=== PATIENT | female | born 1980 | race American Indian/Alaskan Native ===

== ENCOUNTER 2017-06-12 23:01 | Emergency (ER) | payer SELFPAY ==
[2017-06-12 23:43] VITALS: BP 147/83
[2017-06-13] MEDS ORDERED: Cyclobenzaprine 10 MG Tab PO ONE (00:11)
[2017-06-13] MEDS ORDERED: traMADol 50 MG Tab PO ONE (00:12)
--- NOTE | 2017-06-13 00:24 | EDM.PDOC ---
[id number] 4d HEAD AND NECK PAIN Time Seen by Provider: 06/12/17 23:45 Source of Information: Reports: Patient History Limitations: Reports: No Limitations - History of Present Illness INITIAL COMMENTS - FREE TEXT/NARRATIVE: c/o pain to left side of neck and back of head since awakening today. Has had previous similar episodes in past. Denies injury or differing of activity yesterday. No fever, Has not tried anything for pain. Onset: Today Location: Reports: Neck Quality: Reports: Stabbing (with movment) Worsens with: Reports: Movement Posterior Head Pain Score (Numeric/FACES): 8 - Related Data Allergies Allergy/AdvReac Type Severity Reaction Status Date / Time No Known Allergies Allergy Verified 06/12/17 23:29 Home Meds: Home Meds Gabapentin [Neurontin] 1 tab PO BID 06/12/17 [History] Gabapentin [Neurontin] 3 tab PO BEDTIME 06/12/17 [History] Hydrochlorothiazide 1 tab PO DAILY 06/12/17 [History] Ibuprofen 1 tab PO Q6H PRN 06/12/17 [History] Past Medical History - Past Health History Medical/Surgical History: Denies Medical/Surgical History Cardiovascular History: Reports: Hypertension Other Cardiovascular History: with Respiratory History: Reports: None Genitourinary History: Reports: None [employer]OR History: Reports: Other OB/BYN History: , tubal ligation Musculoskeletal History: Reports: Other (See Below) Other Musculoskeletal History: torticullis Neurological History: Reports: Migraines Psychiatric History: Reports: None Endocrine/Metabolic History: Reports: None Hematologic History: Reports: None Immunologic History: Reports: None Oncologic (Cancer) History: Reports: None Dermatologic History: Reports: None - Infectious Disease History Infectious Disease History: Reports: None - Past Surgical History GI Surgical History: Reports: Cholecystectomy Female Surgical History: Reports: Section, Tubal Ligation Social & Family History - Family History Family Medical History: Noncontributory Cardiac: Reports: Hypertension - Tobacco Use Smoking Status *Q: Current Every Day Smoker Years of Tobacco use: 19 Packs/Tins Daily: 0.1 Used Tobacco, but Quit: No Second Hand Smoke Exposure: Yes - Caffeine Use Caffeine Use: Reports: Soda - Alcohol Use Days Per Week of Alcohol Use: 2 Number of Drinks Per Day: 1 Total Drinks Per Week: 2 - Recreational Drug Use Recreational Drug Use: No Drug Use in Last 12 Months: Yes Recreational Drug Type: Reports: Amphetamines (Speed), Marijuana/Hashish, Methamphetamine Recreational Drug Use Frequency: Binges - Living Situation & Occupation Living situation: Reports: with Significant Other Occupation: Employed ED ROS GENERAL - Review of Systems Review Of Systems: See Below Constitutional: Reports: No Symptoms HEENT: Reports: No Symptoms Respiratory: Reports: No Symptoms Cardiovascular: Reports: No Symptoms GI/Abdominal: Reports: No Symptoms Musculoskeletal: Reports: Neck Pain Skin: Reports: No Symptoms Neurological: Reports: Headache (occipital) - Physical Exam Exam: See Below Exam Limited By: No Limitations General Appearance: Alert, Mild Distress Eye Exam: Bilateral Eye: EOMI, Normal Fundi, PERRL Ears: Normal External Exam Nose: Normal Inspection Throat/Mouth: Normal Inspection Head Exam: Atraumatic, Normocephalic Neck: Full Range of Motion, Tender Lateral, Other (increased pain with turning toward right. ). No: Lymphadenopathy (L), Lymphadenopathy (R) Respiratory/Chest: No Respiratory Distress, Lungs Clear, Normal Breath Sounds Cardiovascular: Normal Peripheral Pulses, Regular Rate, Rhythm Neuro Exam (Abbreviated): Alert, Oriented, Normal Cognition, Normal Reflexes, No Motor/Sensory Deficits Back Exam: Normal Inspection Extremities: Normal Inspection Psychiatric: Normal Affect Skin Exam: Warm, Dry, Intact, Normal Color Course - Vital Signs Last Recorded V/S: Last Vital Signs Temp 97.4 F 06/12/17 23:37 Pulse 71 06/12/17 23:37 Resp 16 06/12/17 23:37 BP 147/83 H 06/12/17 23:37 Pulse Ox 100 06/12/17 23:37 - Orders/Labs/Meds Meds: Medications Discontinued Medications Generic Name Dose Route Start Last Admin Trade Name Freq PRN Reason Stop Dose Admin Cyclobenzaprine HCl 10 mg 06/13/17 00:11 06/13/17 00:16 Flexeril PO 06/13/17 00:12 10 mg ONETIME ONE Administration Tramadol HCl 50 mg 06/13/17 00:12 06/13/17 00:16 Ultram PO 06/13/17 00:13 50 mg ONETIME ONE Administration Departure - Departure Time of Disposition: 00:22 Disposition: Home, Self-Care 01 Condition: Good Clinical Impression: Neck muscle spasm - Discharge Information Instructions: Acute Torticollis Forms: ED Department Discharge Additional Instructions: alternate tylenol and ibuprofen for pain heat to neck follow up in clinic for chronic pain management
== END 2017-06-13 00:29 | disposition home or self-care (01) ==
LOC: DL.ED 23:01
DX: M62.838 Other muscle spasm (principal); I10 Essential (primary) hypertension; F17.210 Nicotine dependence, cigarettes, uncomplicated; Z98.51 Tubal ligation status; Z90.49 Acquired absence of other specified parts of digestive tract; Z79.899 Other long term (current) drug therapy
CPT/HCPCS: 99283; 99284; A9270

== ENCOUNTER 2017-07-01 19:02 | Emergency (ER) | payer MEDICAID ==
[2017-07-01 21:18] LABS: CHLORIDE,CL 101 mmol/L (101-111); SODIUM,NA 139 mmol/L (135-145)
--- NOTE | 2017-07-01 21:24 | EDM.PDOC ---
[id number]: CHLOE KENDALL, [id number] Time Seen by Provider: 07/01/17 19:30 Source of Information: Reports: Patient History Limitations: Reports: No Limitations - History of Present Illness INITIAL COMMENTS - FREE TEXT/NARRATIVE: lower abdominal pain starting yesterday, worse this shyanne, no vomiting, no diarrhea, last bm few hours ago, pain sharp bilateral, cramping, sharp. Admits meth use yesterday prior to pain onset, has not taken anything for pain. Location: Reports: Abdomen Bilateral Upper Abdomen Pain Score (Numeric/FACES): 7 - Related Data Allergies Allergy/AdvReac Type Severity Reaction Status Date / Time No Known Allergies Allergy Verified 07/01/17 19:11 Home Meds: Home Meds Gabapentin [Neurontin] 1 tab PO BID 06/12/17 [History] Gabapentin [Neurontin] 3 tab PO BEDTIME 06/12/17 [History] Ibuprofen 1 tab PO Q6H PRN 06/12/17 [History] Past Medical History - Past Health History Medical/Surgical History: Denies Medical/Surgical History Cardiovascular History: Reports: Hypertension Other Cardiovascular History: with Respiratory History: Reports: None Genitourinary History: Reports: None [employer] WORKER History: Reports: Other OB/BYN History: , tubal ligation Musculoskeletal History: Reports: Other (See Below) Other Musculoskeletal History: torticullis Neurological History: Reports: Migraines Psychiatric History: Reports: None Endocrine/Metabolic History: Reports: None Hematologic History: Reports: None Immunologic History: Reports: None Oncologic (Cancer) History: Reports: None Dermatologic History: Reports: None - Infectious Disease History Infectious Disease History: Reports: None - Past Surgical History GI Surgical History: Reports: Cholecystectomy Female Surgical History: Reports: Section, Tubal Ligation Social & Family History - Family History Family Medical History: Noncontributory Cardiac: Reports: Hypertension - Tobacco Use Smoking Status *Q: Current Every Day Smoker Years of Tobacco use: 19 Packs/Tins Daily: 0.3 Used Tobacco, but Quit: No Second Hand Smoke Exposure: Yes - Caffeine Use Caffeine Use: Reports: Soda - Alcohol Use Days Per Week of Alcohol Use: 2 Number of Drinks Per Day: 1 Total Drinks Per Week: 2 - Recreational Drug Use Recreational Drug Use: No Drug Use in Last 12 Months: Yes Recreational Drug Type: Reports: Amphetamines (Speed), Marijuana/Hashish, Methamphetamine Recreational Drug Use Frequency: Binges - Living Situation & Occupation Living situation: Reports: with Significant Other Occupation: Employed ED ROS GENERAL - Review of Systems Review Of Systems: ROS reveals no pertinent complaints other than HPI. ED EXAM, GI/ABD - Physical Exam Exam: See Below Exam Limited By: No Limitations General Appearance: Alert, Mild Distress Eyes: Bilateral: Normal Appearance Ears: Normal External Exam Nose: Normal Inspection Throat/Mouth: Normal Inspection Head: Atraumatic, Normocephalic Neck: Normal Inspection, Full Range of Motion Respiratory/Chest: No Respiratory Distress, Lungs Clear, Normal Breath Sounds Cardiovascular: Normal Peripheral Pulses, Regular Rate, Rhythm GI/Abdominal Exam: Normal Bowel Sounds, Soft, Non-Tender (with palpation) Back Exam: Normal Inspection Extremities: Normal Inspection, Normal Range of Motion Neurological: Alert, Oriented, Normal Cognition Psychiatric: Normal Affect, Normal Mood Skin Exam: Warm, Dry, Intact, Normal Color Course - Vital Signs Last Recorded V/S: Last Vital Signs Temp 97.7 F 07/01/17 20:53 Pulse 90 07/01/17 22:04 Resp 18 07/01/17 22:04 BP 142/68 H 07/01/17 22:04 Pulse Ox 100 07/01/17 22:04 - Orders/Labs/Meds Labs: Laboratory Tests 07/01/17 07/01/17 07/01/17 Range/Units 19:15 19:15 20:45 WBC 13.8 H (5.0-10.0) 10^3/uL RBC 4.95 (4.2-5.4) 10^6/uL Hgb 13.0 (12.0-16.0) g/dL Hct 40.4 (37.0-47.0) % MCV 81.6 (80-100) fL MCH 26.3 L (27.0-34.0) pg MCHC 32.2 L (33.0-35.0) g/dL Plt Count 389 (150-450) 10^3/uL Neut % (Auto) 76.3 H (42.2-75.2) % Lymph % (Auto) 16.3 L (20.5-50.1) % Sutter % (Auto) 6.6 (2-8) % Eos % (Auto) 0.7 L (1.0-3.0) % Baso % (Auto) 0.1 (0.0-1.0) % Sodium (135-145) mmol/L Potassium (3.6-5.0) mmol/L Chloride (101-111) mmol/L Carbon Dioxide (21.0-31.0) mmol/L Anion Gap BUN (7-18) mg/dL Creatinine (0.6-1.3) mg/dL Est Cr Clr Drug Dosing Estimated GFR (MDRD) BUN/Creatinine Ratio Glucose (74-105) mg/dL Calcium (8.4-10.2) mg/dl Total Bilirubin (0.2-1.0) mg/dL AST (10-42) IU/L ALT (10-60) IU/L Alkaline Phosphatase (42-121) IU/L Total Protein (6.7-8.2) g/dl Albumin (3.2-5.5) g/dl Globulin Albumin/Globulin Ratio Urine Color Yellow (YELLOW) Urine Appearance Slightly cloudy (CLEAR) Urine pH 6.0 (5.0-9.0) Ur Specific [place] 1.025 (1.005-1.030) Urine Protein 30 H (NEGATIVE) Urine Glucose (UA) Negative (NEGATIVE) Urine Ketones 15 H (NEGATIVE) Urine Occult Blood Negative (NEGATIVE) Urine Nitrite Negative (NEGATIVE) Urine Bilirubin Small H (NEGATIVE) Urine Urobilinogen 0.2 (0.2-1.0) mg/dL Ur Leukocyte Esterase Negative (NEGATIVE) Urine RBC 0-5 /HPF Urine WBC 0-5 (0-5/HPF) /HPF Ur Epithelial Cells Few /HPF Calcium Oxalate Crystal Moderate H /HPF Urine Bacteria Moderate H (0-FEW/HPF) /HPF Urine Mucus Moderate H /LPF Urine Opiates Screen Negative (NEGATIVE) Ur Oxycodone Screen Negative (NEGATIVE) Urine Methadone Screen Negative (NEGATIVE) Ur Barbiturates Screen Negative (NEGATIVE) U Tricyclic Antidepress Negative (NEGATIVE) Ur Phencyclidine Scrn Negative (NEGATIVE) Ur Amphetamine Screen Positive H (NEGATIVE) U Methamphetamines Scrn Positive H (NEGATIVE) Urine MDMA Screen Negative (NEGATIVE) U Benzodiazepines Scrn Negative (NEGATIVE) Urine Cocaine Screen Negative (NEGATIVE) U Marijuana (THC) Screen Negative (NEGATIVE) 07/01/17 Range/Units 20:45 WBC (5.0-10.0) 10^3/uL RBC (4.2-5.4) 10^6/uL Hgb (12.0-16.0) g/dL Hct (37.0-47.0) % MCV (80-100) fL MCH (27.0-34.0) pg MCHC (33.0-35.0) g/dL Plt Count (150-450) 10^3/uL Neut % (Auto) (42.2-75.2) % Lymph % (Auto) (20.5-50.1) % Sutter % (Auto) (2-8) % Eos % (Auto) (1.0-3.0) % Baso % (Auto) (0.0-1.0) % Sodium 139 (135-145) mmol/L Potassium 4.0 (3.6-5.0) mmol/L Chloride 101 (101-111) mmol/L Carbon Dioxide 27.0 (21.0-31.0) mmol/L Anion Gap 15.0 BUN 19 H (7-18) mg/dL Creatinine 1.1 (0.6-1.3) mg/dL Est Cr Clr Drug Dosing TNP Estimated GFR (MDRD) 56 BUN/Creatinine Ratio 17.27 Glucose 112 H (74-105) mg/dL Calcium 9.4 (8.4-10.2) mg/dl Total Bilirubin 0.6 (0.2-1.0) mg/dL AST 21 (10-42) IU/L ALT 36 (10-60) IU/L Alkaline Phosphatase 99 (42-121) IU/L Total Protein 8.3 H (6.7-8.2) g/dl Albumin 3.9 (3.2-5.5) g/dl Globulin 4.4 Albumin/Globulin Ratio 0.89 Urine Color (YELLOW) Urine Appearance (CLEAR) Urine pH (5.0-9.0) Ur Specific [place] (1.005-1.030) Urine Protein (NEGATIVE) Urine Glucose (UA) (NEGATIVE) Urine Ketones (NEGATIVE) Urine Occult Blood (NEGATIVE) Urine Nitrite (NEGATIVE) Urine Bilirubin (NEGATIVE) Urine Urobilinogen (0.2-1.0) mg/dL Ur Leukocyte Esterase (NEGATIVE) Urine RBC /HPF Urine WBC (0-5/HPF) /HPF Ur Epithelial Cells /HPF Calcium Oxalate Crystal /HPF Urine Bacteria (0-FEW/HPF) /HPF Urine Mucus /LPF Urine Opiates Screen (NEGATIVE) Ur Oxycodone Screen (NEGATIVE) Urine Methadone Screen (NEGATIVE) Ur Barbiturates Screen (NEGATIVE) U Tricyclic Antidepress (NEGATIVE) Ur Phencyclidine Scrn (NEGATIVE) Ur Amphetamine Screen (NEGATIVE) U Methamphetamines Scrn (NEGATIVE) Urine MDMA Screen (NEGATIVE) U Benzodiazepines Scrn (NEGATIVE) Urine Cocaine Screen (NEGATIVE) U Marijuana (THC) Screen (NEGATIVE) Departure - Departure Time of Disposition: 22:05 Disposition: Home, Self-Care 01 Clinical Impression: Methamphetamine abuse Abdominal pain Qualifiers: Abdominal location: lower abdomen, unspecified Qualified Code(s): R10.30 - Lower abdominal pain, unspecified - Discharge Information Instructions: Abdominal Pain, Adult, [id number] Referrals: PCP,None [Primary Care Provider] - Forms: ED Department Discharge Additional Instructions: light low fat, low spice diet follow up if fever or localization of pain tylenol 650mg every 4 hours as needed
[2017-07-01 22:09] VITALS: BP 142/68
== END 2017-07-01 22:05 | disposition home or self-care (01) ==
LOC: DL.ED 19:02
DX: R10.30 Lower abdominal pain, unspecified (principal); F15.10 Other stimulant abuse, uncomplicated; I10 Essential (primary) hypertension; G43.909 Migraine, unspecified, not intractable, without status migrainosus; F17.210 Nicotine dependence, cigarettes, uncomplicated; Z90.49 Acquired absence of other specified parts of digestive tract; Z98.51 Tubal ligation status
CPT/HCPCS: 36415; 74000; 80053; 80305; 81001; 85025; 99282; 99284

== ENCOUNTER 2018-07-13 08:34 | Inpatient (IN) | payer MEDICAID ==
[2018-07-13] MEDS ORDERED: Naloxone 2 MG/2 ML Syringe ONE (08:39)
[2018-07-13] MEDS ORDERED: Sodium Chloride 0.9% 10 ML Syringe FLUSH PRN (08:40)
[2018-07-13] MEDS ORDERED: Sodium Chloride 0.9% 1,000 ML IV ONE (08:41)
[2018-07-13] MEDS: Sodium Chloride 0.9% 10 ML Syringe FLUSH PRN ×3 (08:51→18:13)
[2018-07-13] MEDS ORDERED: Flumazenil 0.1 MG/ML 5 ML MDV IVPUSH ONE (08:52)
[2018-07-13 09:11] LABS: ANION GAP 15.2; CHLORIDE,CL 107 mmol/L (101-111); SODIUM,NA 144 mmol/L (135-145)
[2018-07-13 09:19] LABS: ACETAMINOPHEN < 10
[2018-07-13] MEDS ORDERED: Diphtheria,Pertussis(Acell),Tetanus Vaccine 0.5 ML SDV IM ONE (09:39)
[2018-07-13] MEDS ORDERED: Bacitracin Oint 1 GM U/D Packet TOP ONE (09:39)
[2018-07-13] MEDS ORDERED: MVI, Adult with Vitamin K 10 ML, Thiamine 100 MG, Folic Acid 1 MG in Lactated Ringers 1... IV ONE ×4 (10:35)
--- NOTE | 2018-07-13 10:45 | EDM.PDOCBH ---
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 She was minimally responsive, so they called 911. EMS reports that they found what was believed to be 2 needles from illicit drug use on her possession. Patient arrived to ER responsive to verbal and tactile stimuli, but drowsy and uncooperative. She smelled of alcohol intoxicants. EMS states that a witnessed reported that the patient was pulled from a parked car and drug a short distance to the driveway where she was found. No other details are available. Medical records indicate that the patient is a known methamphetamine abuser. Patient is unable to provide any history. Onset: Today Duration: Constant Location: Reports: Generalized Severity: Severe Improves with: Reports: None Worsens with: Reports: None Associated Symptoms: Reports: No Other Symptoms - Related Data Allergies Allergy/AdvReac Type Severity Reaction Status Date / Time No Known Allergies Allergy Verified 07/01/17 19:11 Home Meds: Home Meds Gabapentin [Neurontin] 1 tab PO BID 06/12/17 [History] Gabapentin [Neurontin] 3 tab PO BEDTIME 06/12/17 [History] Ibuprofen 1 tab PO Q6H PRN 06/12/17 [History] Past Medical History - Past Health History Medical/Surgical History: Denies Medical/Surgical History Cardiovascular History: Reports: Hypertension Other Cardiovascular History: with Respiratory History: Reports: None Genitourinary History: Reports: None COTTON PULLER History: Reports: Other COTTON PULLER History: , tubal ligation Musculoskeletal History: Reports: Other (See Below) Other Musculoskeletal History: torticullis Neurological History: Reports: Migraines Psychiatric History: Reports: None Endocrine/Metabolic History: Reports: None Hematologic History: Reports: None Immunologic History: Reports: None Oncologic (Cancer) History: Reports: None Dermatologic History: Reports: None - Infectious Disease History Infectious Disease History: Reports: None - Past Surgical History GI Surgical History: Reports: Cholecystectomy Female Surgical History: Reports: Section, Tubal Ligation Social & Family History - Family History Family Medical History: Noncontributory Cardiac: Reports: Hypertension - Caffeine Use Caffeine Use: Reports: Soda - Alcohol Use Alcohol Use History: Yes Alcohol Use Frequency: Binges - Recreational Drug Use Recreational Drug Use: Yes Drug Use in Last 12 Months: Yes Recreational Drug Type: Reports: Methamphetamine Recreational Drug Route: Reports: Intravenous - Living Situation & Occupation Living situation: Reports: with Significant Other Occupation: Employed ED ROS GENERAL - Review of Systems Review Of Systems: Unable To Obtain ED EXAM, BEHAVIORAL HEALTH - Physical Exam Exam: See Below Exam Limited By: Uncooperative General Appearance: No Apparent Distress, Obtunded Eye Exam: Bilateral Eye: EOMI, Normal Inspection, PERRL Ears: Normal External Exam Nose: Normal Inspection, Normal Mucosa, No Blood Throat/Mouth: Normal Inspection, Normal Lips, Normal Teeth, Normal Gums, Normal Oropharynx, Normal Voice, No Airway Compromise Head: Atraumatic, Normocephalic Neck: Normal Inspection, Full Range of Motion Respiratory/Chest: No Respiratory Distress, Lungs Clear, Normal Breath Sounds, No Accessory Muscle Use, Chest Non-Tender Cardiovascular: Regular Rate, Rhythm GI/Abdominal: Normal Bowel Sounds, Soft, Non-Tender, No Distention (Female) Exam: Normal External Exam Rectal (Female) Exam: Deferred Back Exam: Other (there is superficial abrasion of the sacral area consistent with being drug on the ground) Extremities: Normal Inspection, Normal Range of Motion, No Pedal Edema, Normal Capillary Refill. No: Joint Swelling Neurological: Other (heavily intoxicate and uncooperativewith exam, butwith purposeful movement of head, neck and all extremities. No obvious motor or sensory deficits.) Psychiatric: Alert Skin Exam: Other (multiple bruises and abrasions to neck, B/L upper and lower extremities) EKG INTERPRETATION EKG Date: 07/13/18 Time: 09:42 Rhythm: Other (sinus rhythm) Rate (Beats/Min): 79 Garfield: LAD-Left Garfield Deviation P-Wave: Present QRS: Normal ST-T: Normal QT: Normal Comparison: NA - No Prior EKG COURSE, BEHAVIORAL HEALTH COMP - Course Vital Signs: Last Vital Signs Temp 36.3 C 07/13/18 08:45 Pulse 82 07/13/18 08:45 Resp 18 07/13/18 08:45 BP 133/86 07/13/18 08:45 Pulse Ox 95 07/13/18 08:45 Orders, Labs, Meds: Active Orders 24 hr Category Date Time Status Blood Glucose Check, Bedside [RC] ONETIME Care 07/13/18 08:39 Active EKG 12 Lead [EKG Documentation Completion] [RC] STAT Care 07/13/18 08:38 Active Peripheral IV Care [RC] . DIRECTED Care 07/13/18 08:40 Active Peripheral IV Care [RC] . DIRECTED Care 07/13/18 08:40 Active Vaccines to be Administered [RC] PER UNIT ROUTINE Care 07/13/18 09:39 Active Head wo Cont [CT] Stat Exams 07/13/18 08:53 Ordered DRUG SCREEN URINE BIORAD [URCHEM] Stat Lab 07/13/18 08:50 Ordered HCG QUALITATIVE,URINE [URCHEM] Stat Lab 07/13/18 08:50 Ordered MVI, Adult with Vitamin K [Infuvite Adult] 10 ml Med 07/13/18 10:35 Active Thiamine [Vitamin B-1] 100 mg Folic Acid 1 mg Lactated Ringers [Ringers, Lactated] 1,000 ml IV .BOLUS Sodium Chloride 0.9% [Saline Flush] Med 07/13/18 08:39 Active 10 ml FLUSH ASDIRECTED PRN Sodium Chloride 0.9% [Saline Flush] Med 07/13/18 08:40 Active 10 ml FLUSH ASDIRECTED PRN Peripheral IV Insertion Adult [OM.PC] Stat Oth 07/13/18 08:38 Ordered Peripheral IV Insertion Adult [OM.PC] Stat Oth 07/13/18 08:40 Ordered Medication Orders Multivitamins/Minerals 10 ml/Thiamine HCl 100 mg/ Folic Acid 1 mg/ Lactated Ringer's 1,011.2 mls @ 999 mls/hr IV .BOLUS ONE Stop: 07/13/18 11:35 Sodium Chloride (Saline Flush) 10 ml FLUSH ASDIRECTED PRN PRN Reason: Keep Vein Open Last Admin: 07/13/18 08:51 Dose: 10 ml Sodium Chloride (Saline Flush) 10 ml FLUSH ASDIRECTED PRN PRN Reason: Keep Vein Open Last Admin: 07/13/18 09:12 Dose: 10 ml Laboratory Tests 07/13/18 07/13/18 07/13/18 Range/Units 08:41 08:41 08:41 WBC 6.0 (5.0-10.0) 10^3/uL RBC 6.16 H (4.2-5.4) 10^6/uL Hgb 14.7 D (12.0-16.0) g/dL Hct 46.6 (37.0-47.0) % MCV 75.6 L D (80-100) fL MCH 23.9 L (27.0-34.0) pg MCHC 31.5 L (33.0-35.0) g/dL Plt Count 389 (150-450) 10^3/uL Neut % (Auto) 59.4 (42.2-75.2) % Lymph % (Auto) 35.4 (20.5-50.1) % [place] % (Auto) 4.4 (2-8) % Eos % (Auto) 0.3 L (1.0-3.0) % Baso % (Auto) 0.5 (0.0-1.0) % PT 8.8 L (9.0-12.0) SEC INR 0.9 (0.9-1.2) APTT 24.2 (22.0-34.0) SEC Sodium 144 (135-145) mmol/L Potassium 3.2 L (3.6-5.0) mmol/L Chloride 107 (101-111) mmol/L Carbon Dioxide 25.0 (21.0-31.0) mmol/L Anion Gap 15.2 BUN 9 (7-18) mg/dL Creatinine 0.8 (0.6-1.3) mg/dL Est Cr Clr Drug Dosing TNP Estimated GFR (MDRD) > 60 BUN/Creatinine Ratio 11.25 Glucose 159 H (74-105) mg/dL POC Glucose (70-105) mg/dl Calcium 8.6 (8.4-10.2) mg/dl Magnesium 2.1 (1.8-2.5) mg/dL Total Bilirubin 0.4 (0.2-1.0) mg/dL AST 36 (10-42) IU/L ALT 50 (10-60) IU/L Alkaline Phosphatase 107 (42-121) IU/L Troponin I < 0.02 (0.00-0.02) ng/ml Total Protein 8.9 H (6.7-8.2) g/dl Albumin 4.1 (3.2-5.5) g/dl Globulin 4.8 Albumin/Globulin Ratio 0.85 Urine Color (YELLOW) Urine Appearance (CLEAR) Urine pH (5.0-9.0) Ur Specific [place] (1.005-1.030) Urine Protein (NEGATIVE) Urine Glucose (UA) (NEGATIVE) Urine Ketones (NEGATIVE) Urine Occult Blood (NEGATIVE) Urine Nitrite (NEGATIVE) Urine Bilirubin (NEGATIVE) Urine Urobilinogen (0.2-1.0) mg/dL Ur Leukocyte Esterase (NEGATIVE) Urine RBC /HPF Urine WBC (0-5/HPF) /HPF Ur Epithelial Cells /HPF Urine Bacteria (0-FEW/HPF) /HPF Urine Mucus /LPF Urine HCG, Qual Salicylates < 4.0 Urine Opiates Screen (NEGATIVE) Ur Oxycodone Screen (NEGATIVE) Urine Methadone Screen (NEGATIVE) Acetaminophen < 10 Ur Barbiturates Screen (NEGATIVE) U Tricyclic Antidepress (NEGATIVE) Ur Phencyclidine Scrn (NEGATIVE) Ur Amphetamine Screen (NEGATIVE) U Methamphetamines Scrn (NEGATIVE) Urine MDMA Screen (NEGATIVE) U Benzodiazepines Scrn (NEGATIVE) Urine Cocaine Screen (NEGATIVE) U Marijuana (THC) Screen (NEGATIVE) Ethyl Alcohol 424 mg/dL 07/13/18 07/13/18 07/13/18 Range/Units 08:50 08:50 08:50 WBC (5.0-10.0) 10^3/uL RBC (4.2-5.4) 10^6/uL Hgb (12.0-16.0) g/dL Hct (37.0-47.0) % MCV (80-100) fL MCH (27.0-34.0) pg MCHC (33.0-35.0) g/dL Plt Count (150-450) 10^3/uL Neut % (Auto) (42.2-75.2) % Lymph % (Auto) (20.5-50.1) % [place] % (Auto) (2-8) % Eos % (Auto) (1.0-3.0) % Baso % (Auto) (0.0-1.0) % PT (9.0-12.0) SEC INR (0.9-1.2) APTT (22.0-34.0) SEC Sodium (135-145) mmol/L Potassium (3.6-5.0) mmol/L Chloride (101-111) mmol/L Carbon Dioxide (21.0-31.0) mmol/L Anion Gap BUN (7-18) mg/dL Creatinine (0.6-1.3) mg/dL Est Cr Clr Drug Dosing Estimated GFR (MDRD) BUN/Creatinine Ratio Glucose (74-105) mg/dL POC Glucose (70-105) mg/dl Calcium (8.4-10.2) mg/dl Magnesium (1.8-2.5) mg/dL Total Bilirubin (0.2-1.0) mg/dL AST (10-42) IU/L ALT (10-60) IU/L Alkaline Phosphatase (42-121) IU/L Troponin I (0.00-0.02) ng/ml Total Protein (6.7-8.2) g/dl Albumin (3.2-5.5) g/dl Globulin Albumin/Globulin Ratio Urine Color Yellow (YELLOW) Urine Appearance Clear (CLEAR) Urine pH 6.0 (5.0-9.0) Ur Specific [place] <= 1.005 (1.005-1.030) Urine Protein Negative (NEGATIVE) Urine Glucose (UA) Negative (NEGATIVE) Urine Ketones Negative (NEGATIVE) Urine Occult Blood Small H (NEGATIVE) Urine Nitrite Negative (NEGATIVE) Urine Bilirubin Negative (NEGATIVE) Urine Urobilinogen 0.2 (0.2-1.0) mg/dL Ur Leukocyte Esterase Small H (NEGATIVE) Urine RBC 0-5 /HPF Urine WBC 5-10 H (0-5/HPF) /HPF Ur Epithelial Cells Rare /HPF Urine Bacteria Not seen (0-FEW/HPF) /HPF Urine Mucus Not seen /LPF Urine HCG, Qual Negative Salicylates Urine Opiates Screen Negative (NEGATIVE) Ur Oxycodone Screen Negative (NEGATIVE) Urine Methadone Screen Negative (NEGATIVE) Acetaminophen Ur Barbiturates Screen Negative (NEGATIVE) U Tricyclic Antidepress Negative (NEGATIVE) Ur Phencyclidine Scrn Negative (NEGATIVE) Ur Amphetamine Screen Negative (NEGATIVE) U Methamphetamines Scrn Positive H (NEGATIVE) Urine MDMA Screen Negative (NEGATIVE) U Benzodiazepines Scrn Negative (NEGATIVE) Urine Cocaine Screen Negative (NEGATIVE) U Marijuana (THC) Screen Negative (NEGATIVE) Ethyl Alcohol mg/dL 07/13/18 Range/Units 09:43 WBC (5.0-10.0) 10^3/uL RBC (4.2-5.4) 10^6/uL Hgb (12.0-16.0) g/dL Hct (37.0-47.0) % MCV (80-100) fL MCH (27.0-34.0) pg MCHC (33.0-35.0) g/dL Plt Count (150-450) 10^3/uL Neut % (Auto) (42.2-75.2) % Lymph % (Auto) (20.5-50.1) % [place] % (Auto) (2-8) % Eos % (Auto) (1.0-3.0) % Baso % (Auto) (0.0-1.0) % PT (9.0-12.0) SEC INR (0.9-1.2) APTT (22.0-34.0) SEC Sodium (135-145) mmol/L Potassium (3.6-5.0) mmol/L Chloride (101-111) mmol/L Carbon Dioxide (21.0-31.0) mmol/L Anion Gap BUN (7-18) mg/dL Creatinine (0.6-1.3) mg/dL Est Cr Clr Drug Dosing Estimated GFR (MDRD) BUN/Creatinine Ratio Glucose (74-105) mg/dL POC Glucose 132 H (70-105) mg/dl Calcium (8.4-10.2) mg/dl Magnesium (1.8-2.5) mg/dL Total Bilirubin (0.2-1.0) mg/dL AST (10-42) IU/L ALT (10-60) IU/L Alkaline Phosphatase (42-121) IU/L Troponin I (0.00-0.02) ng/ml Total Protein (6.7-8.2) g/dl Albumin (3.2-5.5) g/dl Globulin Albumin/Globulin Ratio Urine Color (YELLOW) Urine Appearance (CLEAR) Urine pH (5.0-9.0) Ur Specific [place] (1.005-1.030) Urine Protein (NEGATIVE) Urine Glucose (UA) (NEGATIVE) Urine Ketones (NEGATIVE) Urine Occult Blood (NEGATIVE) Urine Nitrite (NEGATIVE) Urine Bilirubin (NEGATIVE) Urine Urobilinogen (0.2-1.0) mg/dL Ur Leukocyte Esterase (NEGATIVE) Urine RBC /HPF Urine WBC (0-5/HPF) /HPF Ur Epithelial Cells /HPF Urine Bacteria (0-FEW/HPF) /HPF Urine Mucus /LPF Urine HCG, Qual Salicylates Urine Opiates Screen (NEGATIVE) Ur Oxycodone Screen (NEGATIVE) Urine Methadone Screen (NEGATIVE) Acetaminophen Ur Barbiturates Screen (NEGATIVE) U Tricyclic Antidepress (NEGATIVE) Ur Phencyclidine Scrn (NEGATIVE) Ur Amphetamine Screen (NEGATIVE) U Methamphetamines Scrn (NEGATIVE) Urine MDMA Screen (NEGATIVE) U Benzodiazepines Scrn (NEGATIVE) Urine Cocaine Screen (NEGATIVE) U Marijuana (THC) Screen (NEGATIVE) Ethyl Alcohol mg/dL Medications Generic Name Dose Route Start Last Admin Trade Name Freq PRN Reason Stop Dose Admin Multivitamins/Minerals 10 ml/ 1,011.2 mls @ 999 mls/hr 07/13/18 10:35 Thiamine HCl 100 mg/ Folic IV 07/13/18 11:35 Acid 1 mg/ Lactated Ringer's .BOLUS ONE Sodium Chloride 10 ml 07/13/18 08:39 07/13/18 08:51 Saline Flush FLUSH 10 ml ASDIRECTED PRN Administration Keep Vein Open Sodium Chloride 10 ml 07/13/18 08:40 07/13/18 09:12 Saline Flush FLUSH 10 ml ASDIRECTED PRN Administration Keep Vein Open Discontinued Medications Generic Name Dose Route Start Last Admin Trade Name Freq PRN Reason Stop Dose Admin Bacitracin 1 dose 07/13/18 09:39 07/13/18 09:57 Bacitracin Oint 1 Gm TOP 07/13/18 09:40 1 dose ONETIME ONE Administration Diphtheria/Tetanus/Acell Pertussis 0.5 ml 07/13/18 09:39 07/13/18 09:56 Adacel IM 07/13/18 09:40 0.5 ml .ONCE ONE Administration Flumazenil 0.2 mg 07/13/18 08:52 07/13/18 09:10 Romazicon IVPUSH 07/13/18 08:53 0.2 mg ONETIME ONE Administration Sodium Chloride 1,000 mls @ 999 mls/hr 07/13/18 08:41 07/13/18 08:52 Normal Saline IV 07/13/18 09:41 999 mls/hr .BOLUS ONE Administration Naloxone HCl Confirm 07/13/18 08:39 07/13/18 08:51 Narcan Administered 07/13/18 08:40 2 mg Dose Administration 2 mg .ROUTE .STK-MED ONE Re-Assessment/Re-Exam: CT Head: no acute IC process, see Rad. report. Departure - Departure Time of Disposition: 10:38 ((Admit to Dr. Gutierres)) Disposition: Admitted As Inpatient 66 Condition: Serious Clinical Impression: Alcohol abuse, IV drug user, Methamphetamine abuse, Abrasions of multiple sites , Contusion, multiple sites Acute alcohol intoxication Qualifiers: Complication of substance-induced condition: with unspecified complication Qualified Code(s): F10.929 - Alcohol use, unspecified with intoxication, unspecified - Discharge Information Forms: ED Department Discharge - My Orders Last 24 Hours: My Active Orders 07/13/18 08:38 EKG 12 Lead [EKG Documentation Completion] [RC] STAT Peripheral IV Insertion Adult [OM.PC] Stat 07/13/18 08:39 Blood Glucose Check, Bedside [RC] ONETIME Sodium Chloride 0.9% [Saline Flush] 10 ml FLUSH ASDIRECTED PRN 07/13/18 08:40 Peripheral IV Care [RC] . DIRECTED Peripheral IV Care [RC] . DIRECTED Sodium Chloride 0.9% [Saline Flush] 10 ml FLUSH ASDIRECTED PRN Peripheral IV Insertion Adult [OM.PC] Stat 07/13/18 08:50 DRUG SCREEN URINE BIORAD [URCHEM] Stat HCG QUALITATIVE,URINE [URCHEM] Stat 07/13/18 08:53 Head wo Cont [CT] Stat 07/13/18 09:39 Vaccines to be Administered [RC] PER UNIT ROUTINE 07/13/18 10:35 MVI, Adult with Vitamin K [Infuvite Adult] 10 ml Thiamine [Vitamin B-1] 100 mg Folic Acid 1 mg Lactated Ringers [Ringers, Lactated] 1,000 ml IV .BOLUS - Assessment/Plan Last 24 Hours: My Active Orders 07/13/18 08:38 EKG 12 Lead [EKG Documentation Completion] [RC] STAT Peripheral IV Insertion Adult [OM.PC] Stat 07/13/18 08:39 Blood Glucose Check, Bedside [RC] ONETIME Sodium Chloride 0.9% [Saline Flush] 10 ml FLUSH ASDIRECTED PRN 07/13/18 08:40 Peripheral IV Care [RC] . DIRECTED Peripheral IV Care [RC] . DIRECTED Sodium Chloride 0.9% [Saline Flush] 10 ml FLUSH ASDIRECTED PRN Peripheral IV Insertion Adult [OM.PC] Stat 07/13/18 08:50 DRUG SCREEN URINE BIORAD [URCHEM] Stat HCG QUALITATIVE,URINE [URCHEM] Stat 07/13/18 08:53 Head wo Cont [CT] Stat 07/13/18 09:39 Vaccines to be Administered [RC] PER UNIT ROUTINE 07/13/18 10:35 MVI, Adult with Vitamin K [Infuvite Adult] 10 ml Thiamine [Vitamin B-1] 100 mg Folic Acid 1 mg Lactated Ringers [Ringers, Lactated] 1,000 ml IV .BOLUS I have read and agree with the documentation that has been completed regarding this visit. By signing this record, I attest that the documentation was completed in my physical presence and is an accurate record of the encounter.
[2018-07-13] MEDS ORDERED: Ondansetron 4 MG/2 ML SDV IVPUSH PRN (12:42)
[2018-07-13] MEDS ORDERED: LORazepam 1 MG Tab PO PRN ×2 (12:45→12:48)
[2018-07-13] MEDS ORDERED: LORazepam 2 MG/ML Syringe IVPUSH PRN (12:46)
[2018-07-13] MEDS: Nicotine 14 MG/24 Hr Patch TRDERM SCH (13:14)
[2018-07-13] MEDS: Sodium Chloride 0.9% with KCl 1,000 ML IV SCH ×2 (13:18→23:07)
--- NOTE | 2018-07-13 13:38 | HP ---
CHIEF COMPLAINT: Acute encephalopathy. HISTORY OF PRESENT ILLNESS: Ms. Jo Rodriguez is a 38-year-old female with a medical history significant for gestational diabetes and gestational hypertension with chronic neck pain, presented to the ER after EMS found her on the driveway of a neighbor. On presentation to the ER, the patient remained confused and in acute encephalopathic state. She was noted to be acutely alcohol intoxicated with blood alcohol level of 424. She was unable to provide any detailed history. Her urine toxicology screen is also positive for methamphetamine. At this time, the patient is responding to painful stimuli. She is awakable, but unable to provide any detailed history, so no history could be obtained at this time from the patient, most of the history is obtained from reviewing the charts and also discussing with the ER staff. REVIEW OF SYSTEMS: Unable to obtain at this time. PAST MEDICAL HISTORY: As reviewed from the chart, shows: 1. Hypertension. 2. Gestational diabetes. 3. Gestational hypertension. 4. History of chickenpox in the past. 5. Obesity. PAST SURGICAL HISTORY: Significant for: 1. Vaginal, uterus dilatation and curettage. 2. Laparoscopic cholecystectomy. 3. . FAMILY HISTORY: As reviewed from the chart, suggests father with diabetes, one brother with diabetes, and maternal grandmother with cancer and arthritis. SOCIAL HISTORY: The patient has a chronic history of tobacco use and alcohol use and her urine toxicology screen is positive for methamphetamine. ALLERGIES: As reviewed from the chart, no known drug allergies. PHYSICAL EXAMINATION: Vital Signs: Temperature of 97.4, pulse of 82, blood pressure 133/86, respiratory rate of 18, saturating at 95% on room air. General Appearance: The patient appears to be drowsy and confused, in acute encephalopathic state, responds to painful stimuli. Head and Neck: The patient has bruises noted on the left side of the neck. Pupils are equally reactive to light. Cardiovascular System: S1 and S2 heard with normal intensity. No gallops. Respiratory System: Clear to auscultation bilaterally. No wheeze. No crepitations. Abdomen: Soft. Bowel sounds positive. No rigidity. No guarding. No rebound tenderness. Extremities: No edema in bilateral lower extremity. Bruises noted on the left knee. Neurologic: A complete neurological exam could not be completed at this time as the patient is unable to follow any commands. HOME MEDICATIONS: No known home medications at this time. LABORATORY DATA: WBC 6, hemoglobin 14.7, hematocrit 46.6, platelet count 389. INR 0.9. Sodium 144, potassium 3.2, chloride 107, bicarb 25, BUN 9, creatinine 0.8, glucose 159. Magnesium 2.1. Total bilirubin 0.4, AST 36, ALT 50, alkaline phosphatase 107. Urine toxicology screen positive for methamphetamine. Leukocyte esterase, small; no bacteria. ASSESSMENT: 1. Acute encephalopathy. 2. Acute alcohol intoxication. 3. Drug abuse with methamphetamine. 4. Possible suicidal ideation. 5. Hypokalemia. PLAN: 1. Acute encephalopathy: The patient has acute encephalopathy from drug use and acute alcohol intoxication. The patient will be closely observed we will have her under suicidal precaution. We will continue the IV fluids for now, keep her hydrated with IV fluids, maintain euvolemic status. 2. Acute alcohol intoxication: The patient's blood alcohol level is about 400. We will have her on CIWA protocol. We will use Ativan as needed for anxiety. 3. Tobacco use: We will have her on nicotine transdermal patch. 4. Hypokalemia: We will replace with IV potassium chloride and recheck a basic metabolic panel in a.m. 5. DVT prophylaxis: We will have her on Lovenox for DVT prophylaxis. 6. Code status: The patient will be admitted under full code. 7. Discussed with Dr. Christina, ER physician, regarding the plan of care. Reviewed the labs and medications. Reviewed the old charts. [facility] /[id number]
[2018-07-13] MEDS: LORazepam 2 MG/ML Syringe IVPUSH PRN ×4 (18:13→23:09)
[2018-07-14] MEDS: LORazepam 2 MG/ML Syringe IVPUSH PRN ×2 (00:10→05:16)
[2018-07-14] MEDS: Acetaminophen 325 MG Tab PO PRN ×3 (04:12→16:31)
[2018-07-14] MEDS: LORazepam 1 MG Tab PO PRN ×4 (04:18→21:08)
[2018-07-14 06:55] LABS: ANION GAP 11.7; CHLORIDE,CL 105 mmol/L (101-111); SODIUM,NA 137 mmol/L (135-145)
[2018-07-14] MEDS: Nicotine 14 MG/24 Hr Patch TRDERM SCH (08:26)
[2018-07-14] MEDS: Thiamine 200 MG/2 ML MDV IV SCH (08:28)
[2018-07-14] MEDS: Enoxaparin 40 MG/0.4 ML Syringe SUBCUT SCH (08:29)
[2018-07-14] MEDS: Sodium Chloride 0.9% 10 ML Syringe FLUSH PRN ×2 (08:30→15:27)
[2018-07-14] MEDS: Sodium Chloride 0.9% with KCl 1,000 ML IV SCH ×2 (09:03→18:56)
[2018-07-14] MEDS ORDERED: Magnesium Sulfate/Water 2 GM in Premix Bag 1 BAG IV ONE (10:50)
[2018-07-14] MEDS ORDERED: Calcium Gluconate 1 GM in Sodium Chloride 0.9% 100 ML IV ONE (12:00)
[2018-07-14] MEDS: Potassium Chloride 10 MEQ Tab.ER PO SCH ×2 (12:06→18:15)
[2018-07-14] MEDS: Phosphorus #1 250 MG Tab PO SCH ×3 (12:07→20:06)
[2018-07-14] MEDS ORDERED: Phosphorus #1 250 MG Tab PO SCH (14:00)
--- NOTE | 2018-07-14 14:35 | PN ---
DATE: 07/14/2018 SUBJECTIVE: Ms. Jo Rodriguez is a 38-year-old female with a medical history significant for gestational diabetes, gestational hypertension, chronic back pain, admitted to the hospital with acute encephalopathic state secondary to acute alcohol intoxication and urine toxicology screen positive for methamphetamine. For the last 24 hours, the patient had episodes of agitation and had higher CIWA scores around 16. She received multiple doses of IV Ativan during the night, and this morning, she is mostly drowsy. She is unable to provide any detailed history. REVIEW OF SYSTEMS: Could not be obtained at this time secondary to the patient being drowsy after receiving IV Ativan. PHYSICAL EXAMINATION: Vital Signs: Temperature of 97.2, pulse of 84, blood pressure of 136/82, respiratory rate of 18, saturating at 98% on room air. General Appearance: The patient seems to be drowsy at this time. Cardiovascular System: S1 and S2 heard with normal intensity. No gallops. Respiratory System: Clear to auscultation bilaterally. No wheeze. No crepitations. Abdomen: Soft. Bowel sounds positive. Nontender. No rigidity. Extremities: No edema in bilateral lower extremities. Neurologic: No gross focal neurological deficits. MEDICATIONS: 1. Tylenol 650 every 4 hours as needed for pain. 2. Lovenox 40 mg subcutaneous daily. 3. Ativan 1 to 2 mg as needed as per [facility] protocol. 4. Magnesium oxide 250 mg twice a day. 5. Magnesium sulfate 2 g IV 1 time. 6. Nicotine transdermal patch 14 mg daily. 7. Potassium chloride 20 mEq twice a day. 8. Thiamine 100 mg IV daily. 9. Neutra-Phos 250 mg, 3 times a day. LABORATORY DATA: Labs reviewed. WBC 7.4, hemoglobin 10.6, hematocrit 34.3, MCV 77.8, MCH 24, MCHC 30.9. Sodium 137, potassium 3.7, chloride 105, bicarb 24, BUN 8, creatinine 0.5, glucose 182. Calcium 7.8, phosphorus 2.2, magnesium 1.3. Albumin 3.2. ASSESSMENT: 1. Acute encephalopathy secondary to acute alcohol intoxication. 2. Illicit drug abuse with methamphetamine. 3. Hypomagnesemia. 4. Hypophosphatemia. 5. Hypocalcemia. 6. Hypokalemia. 7. Anemia. 8. Chronic history of alcohol use. PLAN: 1. Encephalopathy: The patient continues to have higher CIWA scores, possible alcohol withdrawal. At this time, we will continue with CIWA protocol. She had a higher score of 16 overnight, she required IV Ativan overnight, we will continue the same. Keep her hydrated with IV fluids. 2. Hypomagnesemia: We will replace with IV magnesium and oral magnesium. 3. Hypophosphatemia: Replace with Neutra-Phos. 4. Hypercalcemia: We will give her 1 g of calcium and recheck electrolytes in a.m. 5. Hypokalemia, improved: The patient was noted a potassium of 3.2 at the time of admission, improved to 3.7. Continue with IV and oral potassium chloride supplement. 6. DVT prophylaxis: We will have her on Lovenox for DVT prophylaxis. 7. Anemia: The patient noted to have a hemoglobin of 10.6, with low MCV and MCH, suggestive of possible iron-deficiency anemia. We will order for iron profile and also B12 folate levels and a peripheral smear and we will closely follow. Supplement as needed. [facility] /[id number]
[2018-07-15] MEDS: LORazepam 1 MG Tab PO PRN ×7 (01:20→23:45)
[2018-07-15] MEDS: Sodium Chloride 0.9% with KCl 1,000 ML IV SCH (05:43)
[2018-07-15 06:48] LABS: ANION GAP 9.3; CHLORIDE,CL 106 mmol/L (101-111); SODIUM,NA 136 mmol/L (135-145)
[2018-07-15] MEDS: Nicotine 14 MG/24 Hr Patch TRDERM SCH (09:27)
[2018-07-15] MEDS: Enoxaparin 40 MG/0.4 ML Syringe SUBCUT SCH (09:27)
[2018-07-15] MEDS: Thiamine 200 MG/2 ML MDV IV SCH (09:27)
[2018-07-15] MEDS: Potassium Chloride 10 MEQ Tab.ER PO SCH ×2 (09:28→16:59)
[2018-07-15] MEDS: Phosphorus #1 250 MG Tab PO SCH ×3 (09:28→21:18)
[2018-07-15] MEDS: Acetaminophen 325 MG Tab PO PRN ×4 (10:58→23:44)
--- NOTE | 2018-07-15 13:33 | PN ---
DATE: 07/15/2018 SUBJECTIVE: Mrs. Jo Rodriguez is a 38-year-old female with a medical history significant for gestational diabetes, gestational hypertension, and chronic back pain, admitted with acute encephalopathy secondary to acute alcohol intoxication and methamphetamine use. For the last 24 hours, the patient was continued on IV fluids. She denies any chest pain. No shortness of breath. No abdominal pain. No nausea. No vomiting. No diarrhea. The patient still had some high CIWA score last night requiring Ativan. This morning, she seems to be stable. REVIEW OF SYSTEMS: Cardiovascular, respiratory, gastrointestinal, neurology, constitutional were all evaluated. PHYSICAL EXAMINATION: Vital Signs: Temperature of 98.3, pulse of 70, blood pressure of 153/77, respiratory rate of 18, and saturating at 100%. General Appearance: The patient is well oriented to time, place, and person. Follows commands spontaneously. Cardiovascular System: S1 and S2 heard with normal intensity. No gallops. Respiratory System: Clear to auscultation bilaterally. No wheeze. No crepitations. Abdomen: Soft. Bowel sounds positive. Nontender. No rigidity. Extremities: No edema in bilateral lower extremities. MEDICATIONS: Medications reviewed. Continue with: 1. Tylenol 650 every 4 hours as needed for pain. 2. Lovenox 40 mg subcutaneous daily. 3. Ativan as needed as per [facility] protocol. 4. Magnesium oxide 250 mg twice a day. 5. Nicotine transdermal patch 14 mg. 6. Potassium chloride 20 mEq twice a day. 7. Neutra-Phos 250 mg 3 times a day. 8. Vitamin B1 100 mg IV daily. LABORATORY DATA: Labs reviewed. 1. Sodium 136, potassium 4.3, chloride 106, bicarb 25, BUN 8, creatinine 0.5, glucose 115, calcium 8.5, phosphorus 3.3, magnesium 1.8. 2. Iron 47, TIBC 444. 3. AST 42, ALT 42, total bilirubin 0.9. 4. B12 of 228, folate 22. ASSESSMENT: 1. Acute encephalopathy secondary to acute alcohol intoxication, improved. 2. Illicit drug use with methamphetamine. 3. Hypomagnesemia, resolved. 4. Hypophosphatemia, resolved. 5. Hypocalcemia, resolved. 6. Hypokalemia, resolved. 7. Anemia. 8. Alcohol abuse. PLAN: 1. Encephalopathy. This seems to be much improved. The patient is alert and oriented to time, place, and person. We will gradually wean her off the IV fluids. We will closely follow the patient. 2. Alcohol use. The patient continued to have mild withdrawals. The patient was noted to have higher CIWA score last night requiring Ativan. We will continue with CIWA protocol. We will closely follow the patient. 3. Electrolyte imbalance. The patient was noted to have hypocalcemia, hypokalemia, hypomagnesemia, and hypophosphatemia on this admission requiring supplements. After which, her electrolytes are within normal limits. We will recheck a basic metabolic panel in the a.m. 4. Anemia. This could be anemia of chronic disease from chronic alcohol use. Her B12, folate, and iron levels are within normal limits. We will await for peripheral smear. Closely follow. 5. DVT prophylaxis. Continue with Lovenox for DVT prophylaxis. 6. Possible discharge in the a.m. if she remains hemodynamically stable. [facility] /[id number]
[2018-07-15 21:35] VITALS: BP 146/82
[2018-07-15] MEDS ORDERED: Sodium Chloride 0.65% Nasal Spray 45 ML Bottle NAS PRN (23:55)
[2018-07-15] MEDS ORDERED: Fluticasone Propionate Nasal Spray 16 GM Bottle NASBOTH SCH (23:55)
[2018-07-15] MEDS ORDERED: guaiFENesin 100 MG/5 ML Soln 5 ML UD Cup PO PRN (23:58)
--- NOTE | 2018-07-16 09:19 | EKG ---
07/13/2018- KATHY MELCHOR - FINDINGS: A 12-lead EKG shows normal sinus rhythm with no significant ST elevation or ST depression. Nonspecific ST-T wave changes noted on lead V2. [facility] /[id number]
--- NOTE | 2018-07-16 22:22 | DISCH ---
The patient left against medical advice. ADMITTING DIAGNOSES: 1. Acute encephalopathy. 2. Acute alcohol intoxication. 3. Drug abuse with methamphetamine. 4. Possible suicidal ideation. 5. Acute hypokalemia. DISCHARGE DIAGNOSES: 1. Acute encephalopathy secondary to acute alcohol intoxication, resolved. 2. The patient declines any suicidal ideation at this time. 3. Hypokalemia, improved. 4. Acute hypomagnesemia, resolved. 5. Acute hypophosphatemia, resolved. 6. Acute hypocalcemia, resolved. 7. Anemia. 8. Chronic history of alcohol use. 9. Chronic history of illicit drug abuse. HISTORY OF PRESENT ILLNESS: Mrs. Jo Rodriguez is a 38-year-old female with medical history significant for gestational diabetes, gestational hypertension, and chronic back pain, admitted with acute encephalopathic states. The patient was noted to be in acute alcohol intoxication at the time of admission. She was noted to have a blood alcohol level of 424 at the time of admission. Her hospital course was closely monitored on the Telemetry Unit. The patient was noted to have acute hypokalemia and was also noted to have acute hypomagnesemia, acute hypophosphatemia, and acute hypocalcemia, requiring supplements; after which, her electrolytes returned back to her baseline within normal limits. She was also noted to have anemia, so we did her iron and B12 and folate levels which were all within normal limits. The patient left against medical advice earlier this morning. The patient denied any suicidal thoughts at this time. She will be advised to follow with her primary care. She was educated about alcohol cessation and strongly encouraged her to quit drinking on this admission which she understood and want to do the same. She was also explained about ill effects of illicit drug use on her health and strictly discouraged her from using any illicit drugs. [facility] /[id number]
== END 2018-07-16 05:35 | disposition left against medical advice (07) | DRG 57 ==
LOC: DL.ED 08:34 → UNDOADMIN 11:21 → DL.MS 11:21
PROVIDERS: ADMIT Internal Medicine; ATTEND Internal Medicine
DX: G31.2 Degeneration of nervous system due to alcohol (principal); R45.851 Suicidal ideations; F10.239 Alcohol dependence with withdrawal, unspecified; F10.229 Alcohol dependence with intoxication, unspecified; F15.10 Other stimulant abuse, uncomplicated; Y90.8 Blood alcohol level of 240 mg/100 ml or more; E87.6 Hypokalemia; G89.29 Other chronic pain; M54.9 Dorsalgia, unspecified; E83.42 Hypomagnesemia; E83.39 Other disorders of phosphorus metabolism; E83.51 Hypocalcemia; D50.9 Iron deficiency anemia, unspecified; Z87.59 Personal history of other complications of pregnancy, childbirth and the puerperium; Z98.51 Tubal ligation status
CPT/HCPCS: 36415; 51702; 70450; 80048; 80053; 80305-QW; 81001; 81025; 82607; 82728; 82746; 82962; 83540; 83550; 83735; 84100; 84484; 85008; 85025; 85027; 85610; 85730; 90715; 93005; 96361; 96365; 96375; 99285; A9270-GY; G0480; J0610; J1650; J2060; J2310; J3411; J3475; J3480; J3490; J7030; J7050; J7120

== ENCOUNTER 2020-05-28 21:03 | Emergency (ER) | payer MEDICAID ==
[2020-05-28 21:34] VITALS: BP 140/85; PULSE 95
--- NOTE | 2020-05-28 22:07 | EDM.PDOC ---
ED HPI GENERAL MEDICAL PROBLEM - General Chief Complaint: Upper Extremity Injury/Pain Stated Complaint: CUT FINGER NAILS, HAND SWALLON PER PT Time Seen by Provider: 05/28/20 22:07 Source of Information: Reports: Patient, RN, RN Notes Reviewed History Limitations: Reports: No Limitations - History of Present Illness INITIAL COMMENTS - FREE TEXT/NARRATIVE: Patient presents to ER with complaint of pain in the right thumb and right index finger, right hand. Patient denies any recent injury to the hand or fingers. There is bruising to the left thumb tip and nail bed. Patient states no trauma, no slamming the thumb in anything. Patient states she has been painting for the past few days and she is right-handed. Patient can wiggle the fingers but is painful up into the wrist. Onset: Today, Gradual Treatments BARREL TESTER: Reports: Acetaminophen, NSAIDS Right Hand Pain Score (Numeric/FACES): 7 - Related Data Allergies Allergy/AdvReac Type Severity Reaction Status Date / Time No Known Allergies Allergy Verified 05/28/20 21:28 Home Meds: Home Meds . 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 FARMER History: , tubal ligation Musculoskeletal History: Reports: Other (See Below) Other Musculoskeletal History: torticullis Neurological History: Reports: Migraines Psychiatric History: Reports: Addiction Endocrine/Metabolic History: Reports: None Hematologic History: Reports: None Immunologic History: Reports: None Oncologic (Cancer) History: Reports: None Dermatologic History: Reports: None - Infectious Disease History Infectious Disease History: Reports: None - Past Surgical History GI Surgical History: Reports: Cholecystectomy Female Surgical History: Reports: Section, Tubal Ligation Social & Family History - Family History Family Medical History: Unobtainable Cardiac: Reports: Hypertension - Tobacco Use Smoking Status *Q: Current Some Day Smoker Years of Tobacco use: 22 Packs/Tins Daily: 0.3 Second Hand Smoke Exposure: Yes - Caffeine Use Caffeine Use: Reports: Coffee, Soda - Living Situation & Occupation Living situation: Reports: with Significant Other Occupation: Employed Review of Systems - Review of Systems Review Of Systems: Comprehensive ROS is negative, except as noted in HPI. ED EXAM, GENERAL - Physical Exam Exam: See Below Exam Limited By: No Limitations General Appearance: Alert, WD/WN, Mild Distress Eye Exam: Bilateral Eye: EOMI, Normal Inspection Ears: Normal External Exam, Hearing Grossly Normal Nose: Normal Inspection Throat/Mouth: Normal Inspection, Normal Voice, No Airway Compromise Head: Atraumatic, Normocephalic Neck: Normal Inspection Respiratory/Chest: No Respiratory Distress, Lungs Clear, Normal Breath Sounds, No Accessory Muscle Use, Chest Non-Tender Cardiovascular: Normal Peripheral Pulses, Regular Rate, Rhythm, No Edema, No Gallop, No JVD, No Murmur, No Rub Peripheral Pulses: 2+: Radial (L), Radial (R) GI/Abdominal: Normal Bowel Sounds, Soft, Non-Tender (Female) Exam: Deferred Rectal (Female) Exam: Deferred Back Exam: Normal Inspection, Full Range of Motion, NT Extremities: Normal Inspection, Normal Range of Motion, Non-Tender, Normal Capillary Refill, No Pedal Edema Neurological: Alert, Oriented, CN II-XII Intact, Normal Cognition, Normal Gait, Normal Reflexes, No Motor/Sensory Deficits Psychiatric: Normal Affect, Normal Mood, Anxious Skin Exam: Warm, Dry, Intact, Normal Color, No Rash, Ecchymosis (tip of right thumb, under nail bed) Lymphatic: No Adenopathy Course - Vital Signs Last Recorded V/S: Last Vital Signs Temp 97.8 F 05/28/20 21:33 Pulse 95 05/28/20 21:33 Resp 18 05/28/20 21:33 BP 140/85 05/28/20 21:33 Pulse Ox 97 05/28/20 21:33 - Radiology Interpretation Free Text/Narrative:: Right hand xray: PROCEDURE INFORMATION: Exam: XR Right Hand Exam date and time: 05/28/2020 10:19 PM Age: 40 years old Clinical indication: Other: No known injury; Additional info: Pain TECHNIQUE: Imaging protocol: XR Right hand. Views: 3 or more views. COMPARISON: No relevant prior studies available. FINDINGS: Bones/joints: Normal. Soft tissues: Normal. IMPRESSION: No acute findings. Thank you for allowing us to participate in the care of your patient. Dictated and Authenticated by: Brian Callahan MD 05/28/2020 10:27 PM Central Time ([place] & [place]) See rad report Departure - Departure Time of Disposition: 23:08 Disposition: Home, Self-Care 01 Condition: Fair Clinical Impression: Tendonitis Contusion of right thumb nail Qualifiers: Encounter type: initial encounter Qualified Code(s): S60.111A - Contusion of right thumb with damage to nail, initial encounter - Discharge Information *PRESCRIPTION DRUG MONITORING PROGRAM REVIEWED*: No *COPY OF PRESCRIPTION DRUG MONITORING REPORT IN PATIENT TOR: No Instructions: How to Use Cold Therapy, [id number], Contusion, [id number] Referrals: PCP,None [Primary Care Provider] - Forms: ED Department Discharge Additional Instructions: May use Tylenol and/or ibuprofen as directed for pain May ice the area as tolerated Follow up with your primary care provider if no improvement Sepsis Event Note (ED) - Evaluation Sepsis Screening Result: No Definite Risk - Focused Exam Vital Signs: Vital Signs Temp Pulse Resp BP Pulse Ox 05/28/20 21:33 97.8 F 95 18 140/85 97
--- NOTE | 2020-05-28 22:28 | CR ---
PROCEDURE INFORMATION: Exam: XR Right Hand Exam date and time: 05/28/2020 10:19 PM Age: 40 years old Clinical indication: Other: No known injury; Additional info: Pain TECHNIQUE: Imaging protocol: XR Right hand. Views: 3 or more views. COMPARISON: No relevant prior studies available. FINDINGS: Bones/joints: Normal. Soft tissues: Normal. IMPRESSION: No acute findings.
== END 2020-05-28 23:16 | disposition home or self-care (01) ==
LOC: DL.ED 21:03
DX: S60.111A Contusion of right thumb with damage to nail, initial encounter (principal); M77.9 Enthesopathy, unspecified; I10 Essential (primary) hypertension; F17.210 Nicotine dependence, cigarettes, uncomplicated; X58.XXXA Exposure to other specified factors, initial encounter
CPT/HCPCS: 73130-RT; 99283-25

== ENCOUNTER 2020-05-29 12:50 | Emergency (ER) | payer MEDICAID ==
[2020-05-29] MEDS ORDERED: Doxycycline 100 MG Cap PO ONE (13:32)
[2020-05-29] MEDS ORDERED: Ibuprofen 600 MG Tab PO ONE (13:32)
[2020-05-29 13:36] VITALS: BP 173/88; PULSE 79
--- NOTE | 2020-05-29 14:01 | EDM.PDOC ---
Scribed by Sandra Bennett 05/29/20 1401 for Audrey Ball PA-C ED HPI GENERAL MEDICAL PROBLEM - General Chief Complaint: Upper Extremity Injury/Pain Stated Complaint: RIGHT HAND PAIN Time Seen by Provider: 05/29/20 13:24 Source of Information: Reports: Patient, RN, RN Notes Reviewed History Limitations: Reports: No Limitations - History of Present Illness INITIAL COMMENTS - FREE TEXT/NARRATIVE: ED with c/o sever right thumb pain . IN ED last night same c/o, had been painting on fence unsure if injury. No fever or chills. Right Hand Pain Score (Numeric/FACES): 10 - Related Data Allergies Allergy/AdvReac Type Severity Reaction Status Date / Time No Known Allergies Allergy Verified 05/28/20 21:28 Home Meds: Home Meds . 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 OPERATOR History: , tubal ligation Musculoskeletal History: Reports: Other (See Below) Other Musculoskeletal History: torticullis Neurological History: Reports: Migraines Psychiatric History: Reports: Addiction Endocrine/Metabolic History: Reports: None Hematologic History: Reports: None Immunologic History: Reports: None Oncologic (Cancer) History: Reports: None Dermatologic History: Reports: None - Infectious Disease History Infectious Disease History: Reports: None - Past Surgical History GI Surgical History: Reports: Cholecystectomy Female Surgical History: Reports: Section, Tubal Ligation Social & Family History - Family History Family Medical History: Unobtainable Cardiac: Reports: Hypertension - Caffeine Use Caffeine Use: Reports: Coffee, Soda - Living Situation & Occupation Living situation: Reports: with Significant Other Occupation: Employed Review of Systems - Review of Systems Review Of Systems: Comprehensive ROS is negative, except as noted in HPI. ED EXAM, GENERAL - Physical Exam Exam: See Below Exam Limited By: No Limitations General Appearance: Alert, Anxious, Moderate Distress, Thin Eye Exam: Bilateral Eye: EOMI Throat/Mouth: Normal Inspection, Normal Lips, Perioral Cyanosis Head: Atraumatic Respiratory/Chest: No Respiratory Distress, Lungs Clear Cardiovascular: Normal Peripheral Pulses, Regular Rate, Rhythm Back Exam: Full Range of Motion Extremities: Other (wrist and hand negative, distal thumb right mild swelling, slight bruising under mid nail and tip. ) Neurological: Alert, Oriented, Normal Cognition Psychiatric: Anxious Skin Exam: Warm, Dry, Intact, Rash (recent track arina bilateral anticubitals.) Course - Vital Signs Last Recorded V/S: Last Vital Signs Temp 96.9 F 05/29/20 13:35 Pulse 79 05/29/20 13:35 Resp 22 H 05/29/20 13:35 BP 173/88 H 05/29/20 13:35 Pulse Ox 98 05/29/20 13:35 - Orders/Labs/Meds Labs: Laboratory Tests 05/29/20 Range/Units 13:22 Urine Opiates Screen Negative (NEGATIVE) Ur Oxycodone Screen Negative (NEGATIVE) Urine Methadone Screen Negative (NEGATIVE) Ur Barbiturates Screen Negative (NEGATIVE) U Tricyclic Antidepress Negative (NEGATIVE) Ur Phencyclidine Scrn Negative (NEGATIVE) Ur Amphetamine Screen Positive H (NEGATIVE) U Methamphetamines Scrn Positive H (NEGATIVE) Urine MDMA Screen Negative (NEGATIVE) U Benzodiazepines Scrn Negative (NEGATIVE) Urine Cocaine Screen Negative (NEGATIVE) U Marijuana (THC) Screen Negative (NEGATIVE) Meds: Medications Discontinued Medications Generic Name Dose Route Start Last Admin Trade Name Thierry PRN Reason Stop Dose Admin Doxycycline Hyclate 100 mg 05/29/20 13:32 05/29/20 13:50 Vibramycin PO 05/29/20 13:33 100 mg ONETIME ONE Administration Ibuprofen 600 mg 05/29/20 13:32 05/29/20 13:51 Motrin PO 05/29/20 13:33 600 mg ONETIME ONE Administration Departure - Departure Time of Disposition: 13:34 Disposition: Home, Self-Care 01 Condition: Fair Clinical Impression: Infection of thumb - Discharge Information Instructions: Skin Abscess Forms: ED Department Discharge Additional Instructions: Discharge home on Doxycycline 100mg b.i.d. x10 days. Elevate the hand. Warm soaks. See PCP in clinic on Saturday for Saturday. Sepsis Event Note (ED) - Focused Exam Vital Signs: Vital Signs Temp Pulse Resp BP Pulse Ox 05/29/20 13:35 96.9 F 79 22 H 173/88 H 98 I have read and agree with the documentation that has been completed regarding this visit. By signing this record, I attest that the documentation was completed in my physical presence and is an accurate record of the encounter.
== END 2020-05-29 13:55 | disposition home or self-care (01) ==
LOC: DL.ED 12:50
DX: L08.9 Local infection of the skin and subcutaneous tissue, unspecified (principal); I10 Essential (primary) hypertension
CPT/HCPCS: 80305; 99283; A9270

== ENCOUNTER 2021-06-01 17:23 | Emergency (ER) | payer MEDICAID ==
[2021-06-01 18:27] VITALS: BP 154/72; PULSE 89
--- NOTE | 2021-06-01 19:48 | CR ---
PROCEDURE INFORMATION: Exam: XR Right Finger(s) Exam date and time: 06/01/2021 7:08 PM Age: 41 years old Clinical indication: Other: Distal end slammed 2 days ago; Additional info: Slammed finger in door TECHNIQUE: Imaging protocol: XR Right fingers. Views: Minimum 2 views. COMPARISON: No relevant prior studies available. FINDINGS: Bones/joints: There is no evidence of acute fracture. There is no subluxation or dislocation. Soft tissues: There is soft tissue injury at the distal aspect of the 4th finger. IMPRESSION: Soft tissue injury distal 4th finger without associated bony findings.
[2021-06-01] MEDS ORDERED: Mupirocin Oint 22 GM Tube ONE (20:05)
--- NOTE | 2021-06-01 20:06 | EDM.PDOC ---
ED HPI GENERAL MEDICAL PROBLEM - General Chief Complaint: Upper Extremity Injury/Pain Stated Complaint: RIGHT RING FINGER CAUGHT IN CLOSET, BLACK Time Seen by Provider: 06/01/21 19:10 Source of Information: Reports: Patient History Limitations: Reports: No Limitations - History of Present Illness INITIAL COMMENTS - FREE TEXT/NARRATIVE: ED with c/o discomfort tip right ring finger, pnched in door few days prior. Right Finger-Ring Pain Score (Numeric/FACES): 4 - Related Data Allergies Allergy/AdvReac Type Severity Reaction Status Date / Time No Known Allergies Allergy Verified 06/03/21 19:39 Home Meds: Home Meds . 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 TECHNICIAN History: , tubal ligation Musculoskeletal History: Reports: Other (See Below) Other Musculoskeletal History: torticullis Neurological History: Reports: Migraines Psychiatric History: Reports: Addiction Endocrine/Metabolic History: Reports: None Hematologic History: Reports: None Immunologic History: Reports: None Oncologic (Cancer) History: Reports: None Dermatologic History: Reports: None - Infectious Disease History Infectious Disease History: Reports: None - Past Surgical History GI Surgical History: Reports: Cholecystectomy Female Surgical History: Reports: Section, Tubal Ligation Social & Family History - Family History Family Medical History: Unobtainable Cardiac: Reports: Hypertension - Tobacco Use Tobacco Use Status *Q: Current Every Day Tobacco User Years of Tobacco use: 16 Packs/Tins Daily: 1 - Caffeine Use Caffeine Use: Reports: Coffee, Soda - Recreational Drug Use Recreational Drug Use: No - Living Situation & Occupation Living situation: Reports: with Significant Other Occupation: Employed Review of Systems - Review of Systems Review Of Systems: Comprehensive ROS is negative, except as noted in HPI. ED EXAM, GENERAL - Physical Exam Exam: See Below Exam Limited By: No Limitations General Appearance: Alert, No Apparent Distress Eye Exam: Bilateral Eye: EOMI Ears: Normal External Exam Nose: Normal Inspection Throat/Mouth: Normal Inspection Head: Atraumatic, Normocephalic Neck: Normal Inspection Respiratory/Chest: No Respiratory Distress, Lungs Clear Cardiovascular: Regular Rate, Rhythm Extremities: Other (right fat pad4th finger distal ark disoloration dried, minim al tenderness with palpation. No surrounding errythema. Good ROM.) Neurological: Alert, Oriented Skin Exam: Warm, Dry Course - Vital Signs Last Recorded V/S: Last Vital Signs Temp 98.6 F 06/01/21 18:23 Pulse 89 06/01/21 18:23 Resp 16 06/01/21 18:23 BP 154/72 H 06/01/21 18:23 Pulse Ox 98 06/01/21 18:23 - Orders/Labs/Meds Meds: Medications Discontinued Medications Generic Name Dose Route Start Last Admin Trade Name Thierry PRN Reason Stop Dose Admin Mupirocin Confirm 06/01/21 20:05 06/01/21 20:09 Mupirocin Oint 22 Gm Tube Administered 06/01/21 20:06 Not Given Dose 22 gm .ROUTE .STK-MED ONE Departure - Departure Time of Disposition: 20:03 Disposition: Home, Self-Care 01 Condition: Good Clinical Impression: Contusion Qualifiers: Encounter type: initial encounter Contusion area: finger Finger: ring finger Damage to nail status: without damage Laterality: right Qualified Code(s): S60.041A - Contusion of right ring finger without damage to nail, initial encounter - Discharge Information *PRESCRIPTION DRUG MONITORING PROGRAM REVIEWED*: No *COPY OF PRESCRIPTION DRUG MONITORING REPORT IN PATIENT TOR: No Instructions: Contusion, [id number], Abrasion, [id number] Forms: ED Department Discharge Additional Instructions: wash soap and water mupirocin to area, cover with dressing, recheck clinic next week, sooner if redness swelling or increased drainage Sepsis Event Note (ED) - Evaluation Sepsis Screening Result: No Definite Risk
== END 2021-06-01 20:13 | disposition home or self-care (01) ==
LOC: DL.ED 17:23
DX: S60.041A Contusion of right ring finger without damage to nail, initial encounter (principal); I10 Essential (primary) hypertension; Z72.0 Tobacco use; W22.8XXA Striking against or struck by other objects, initial encounter
CPT/HCPCS: 73140; 99283; A9270

== ENCOUNTER 2021-06-03 19:27 | Emergency (ER) | payer MEDICAID ==
[2021-06-03] MEDS ORDERED: Cephalexin 500 MG Cap PO ONE (19:28)
[2021-06-03] MEDS ORDERED: hydrOXYzine HCl 25 MG Tab PO ONE (19:28)
[2021-06-03 19:43] VITALS: BP 160/85; PULSE 106
--- NOTE | 2021-06-03 20:03 | EDM.PDOC ---
ED HPI GENERAL MEDICAL PROBLEM - General Chief Complaint: Skin Complaint Stated Complaint: POISON KIRIT BOTH FEET SWOLLEN Time Seen by Provider: 06/03/21 20:02 Source of Information: Reports: Patient, RN, RN Notes Reviewed History Limitations: Reports: No Limitations - History of Present Illness INITIAL COMMENTS - FREE TEXT/NARRATIVE: Patient is a 41-year-old female who presents to ER with complaint of swelling, itching, painful skin to the feet and ankles bilaterally. Patient states she was out picking May a few days ago and got into poison kirit/poison oak. She states the swelling and itching has progressively gotten worse, she has been using calamine lotion and ibuprofen and Tylenol for the pain. The skin is blistered, open and weeping. Patient denies any fever or chills. States her feet began swelling yesterday, and today she feels as though her feet and lower legs are somewhat numb. Complains of urticaria. Onset: Gradual Right Ankle Pain Score (Numeric/FACES): 8 - Related Data Allergies Allergy/AdvReac Type Severity Reaction Status Date / Time No Known Allergies Allergy Verified 06/03/21 19:39 Home Meds: Home Meds . [No Known Home Meds] 07/13/18 [History] Past Medical History - Past Health History Medical/Surgical History: Denies Medical/Surgical History Cardiovascular History: Reports: Hypertension Other Cardiovascular History: with Respiratory History: Reports: None Genitourinary History: Reports: None [employer] DEVELOPER History: Reports: Other [employer] DEVELOPER History: , tubal ligation Musculoskeletal History: Reports: Other (See Below) Other Musculoskeletal History: torticullis Neurological History: Reports: Migraines Psychiatric History: Reports: Addiction Endocrine/Metabolic History: Reports: None Hematologic History: Reports: None Immunologic History: Reports: None Oncologic (Cancer) History: Reports: None Dermatologic History: Reports: None - Infectious Disease History Infectious Disease History: Reports: None - Past Surgical History HEENT Surgical History: Reports: Oral Surgery GI Surgical History: Reports: Cholecystectomy Female Surgical History: Reports: Section, Tubal Ligation Social & Family History - Family History Family Medical History: Unobtainable Cardiac: Reports: Hypertension - Tobacco Use Tobacco Use Status *Q: Current Every Day Tobacco User Years of Tobacco use: 20 Packs/Tins Daily: 1 Used Tobacco, but Quit: No Second Hand Smoke Exposure: Yes - Caffeine Use Caffeine Use: Reports: Coffee, Soda - Recreational Drug Use Recreational Drug Use: No - Living Situation & Occupation Living situation: Reports: with Significant Other Occupation: Employed ED ROS GENERAL - Review of Systems Review Of Systems: Comprehensive ROS is negative, except as noted in HPI. ED EXAM, SKIN/RASH Exam: See Below Exam Limited By: No Limitations General Appearance: Alert, WD/WN, Mild Distress Eye Exam: Bilateral Eye: EOMI, Normal Inspection Ears: Normal External Exam, Hearing Grossly Normal Nose: Normal Inspection Throat/Mouth: Normal Inspection, Normal Voice, No Airway Compromise Head: Atraumatic, Normocephalic Neck: Normal Inspection, Supple, Non-Tender, Full Range of Motion Respiratory/Chest: No Respiratory Distress, Lungs Clear, Normal Breath Sounds, No Accessory Muscle Use, Chest Non-Tender Cardiovascular: Normal Peripheral Pulses, Regular Rate, Rhythm, No Edema, No Gallop, No JVD, No Murmur, No Rub Peripheral Pulses: 2+: Radial (L), Radial (R), Dorsalis Pedis (L), Dorsalis Pedis (R) GI/Abdominal: Normal Bowel Sounds, Soft, Non-Tender (Female) Exam: Deferred Rectal (Female) Exam: Deferred Back Exam: Normal Inspection, Full Range of Motion, NT Extremities: Other (swelling and erythema, open skin to the lower extremities (ankles and feet), right worse than left) Neurological: Alert, Oriented, CN II-XII Intact, Normal Cognition, Normal Gait, Normal Reflexes, No Motor/Sensory Deficits Psychiatric: Normal Affect, Normal Mood Skin: Warm, Dry, Erythema, Other (swelling to the feet and ankles bilaterally, open skin and blisters to the right ankle/foot as well as erythema) Location, Skin: Lower Extremity, Right, Lower Extremity, Left Associated features: Warmth, Tenderness, Swelling, Crusting, Weeping Lymphatic: No Adenopathy Course - Vital Signs Last Recorded V/S: Last Vital Signs Temp 96.2 F L 06/03/21 19:42 Pulse 106 H 06/03/21 19:42 Resp 16 06/03/21 19:42 BP 160/85 H 06/03/21 19:42 Pulse Ox 98 06/03/21 19:42 - Orders/Labs/Meds Meds: Medications Discontinued Medications Generic Name Dose Route Start Last Admin Trade Name Thierry PRN Reason Stop Dose Admin Cephalexin 500 mg 06/03/21 20:26 06/03/21 20:32 Cephalexin 500 Mg Cap PO 06/03/21 20:27 500 mg ONETIME ONE Administration Cephalexin Confirm 06/03/21 20:41 Cephalexin 500 Mg Cap Administered 06/03/21 20:42 Dose 1,000 mg .ROUTE .STK-MED ONE Hydroxyzine HCl 50 mg 06/03/21 20:24 06/03/21 20:32 Hydroxyzine Hcl 25 Mg Tab PO 06/03/21 20:25 50 mg ONETIME ONE Administration Hydroxyzine HCl Confirm 06/03/21 20:41 Hydroxyzine Hcl 25 Mg Tab Administered 06/03/21 20:42 Dose 100 mg .ROUTE .STK-MED ONE Triamcinolone Acetonide 40 mg 06/03/21 20:21 Triamcinolone Acetonide 40 Mg/Ml 1 Ml Sdv INJECT 06/03/21 20:22 ONETIME ONE Triamcinolone Acetonide 80 mg 06/03/21 20:23 06/03/21 20:30 Triamcinolone Acetonide 40 Mg/Ml 1 Ml Sdv INJECT 06/03/21 20:24 80 mg ONETIME ONE Administration Departure - Departure Time of Disposition: 20:53 Disposition: Home, Self-Care 01 Condition: Fair Clinical Impression: Poison kirit dermatitis, Skin infection - Discharge Information *PRESCRIPTION DRUG MONITORING PROGRAM REVIEWED*: No *COPY OF PRESCRIPTION DRUG MONITORING REPORT IN PATIENT TOR: No Instructions: Poison Kirit Dermatitis, [id number], Contact Dermatitis, [id number], Poison [place] Dermatitis, [id number] Forms: ED Department Discharge Additional Instructions: Rx: Hydroxyzine 25 mg, 1-2 tabs every 8 hours as needed for itch Cephalexin 500 mg 1 orally twice daily for 10 days Soak in with warm water when you get home Keep area covered with dressing while weeping May use Tylenol and/or ibuprofen as directed for pain Follow-up with your primary care provider next week if no improvement Sepsis Event Note (ED) - Evaluation Sepsis Screening Result: No Definite Risk - Focused Exam Vital Signs: Vital Signs Temp Pulse Resp BP Pulse Ox 06/03/21 19:42 96.2 F L 106 H 16 160/85 H 98
[2021-06-03] MEDS ORDERED: Triamcinolone Acetonide 40 MG/ML 1 ML SDV INJECT ONE (20:21)
[2021-06-03] MEDS: Triamcinolone Acetonide 40 MG/ML 1 ML SDV INJECT ONE (20:30)
[2021-06-03] MEDS: hydrOXYzine HCl 25 MG Tab PO ONE (20:32)
[2021-06-03] MEDS: Cephalexin 500 MG Cap PO ONE (20:32)
[2021-06-03] MEDS: hydrOXYzine HCl 25 MG Tab ONE (20:45)
[2021-06-03] MEDS: Cephalexin 500 MG Cap ONE (20:45)
== END 2021-06-03 20:46 | disposition home or self-care (01) ==
LOC: DL.ED 19:27
DX: L23.7 Allergic contact dermatitis due to plants, except food (principal); S90.521A Blister (nonthermal), right ankle, initial encounter; L08.9 Local infection of the skin and subcutaneous tissue, unspecified; I10 Essential (primary) hypertension; Z72.0 Tobacco use; X58.XXXA Exposure to other specified factors, initial encounter
CPT/HCPCS: 96372; 99283; A9270; J3301